=== PATIENT | male | born 1945 | race Caucasian/White ===

== ENCOUNTER → 2017-04-24 | Outpatient (CLI) | payer OTHER ==
[~2017-04-24] MED LIST: AUGMENTIN 875875 MG PO; DIAZEPAM10 M1 PO; NEURONTIN100 MG PO; OXYCODONE HCL10 M1 PO; PRILOSEC40 M1 PO; ULTRAM50 MG PO; VICODIN 500 MG-1 TAB PO; VICODIN HP 6601 TA1 PO; XARELTO15 M1 PO
[2017-04-24 14:02] LABS: CREATININE 1.02 mg/dL (0.70-1.30)
== END | disposition home or self-care (01) ==
LOC: CT 04-16 13:00 → LAB 13:33 → CT 14:00
PROVIDERS: Family Medicine
DX: I71.9 Aortic aneurysm of unspecified site, without rupture (principal)

== ENCOUNTER → 2022-07-23 | Outpatient (CLI) | payer OTHER | END | disposition home or self-care (01) | LOC: WOUNDCARE 00:23 | PROVIDERS: ATTEND Nurse Practitioner Family | DX: M27.2 Inflammatory conditions of jaws (principal); L59.8 Other specified disorders of the skin and subcutaneous tissue related to radiation; F12.90 Cannabis use, unspecified, uncomplicated; Z85.810 Personal history of malignant neoplasm of tongue; Z71.89 Other specified counseling; Y84.2 Radiological procedure and radiotherapy as the cause of abnormal reaction of the patient, or of later complication, without mention of misadventure at the time of the procedure ==

== ENCOUNTER 2025-02-06 18:32 | Emergency (ER) | payer MEDICARE ==
[~2025-02-06] VITALS: Ht 177.8 cm; Wt 68.0 kg
[2025-02-06 18:58] VITALS: BP 186/97
[2025-02-06] MEDS ORDERED: SODIUM CHLORIDE 0.9% 1,000 ML IV ONE (19:15)
[2025-02-06] MEDS ORDERED: Metoclopramide Hydrochloride 10 MG/2 ML VIAL IV ONE (19:15)
[2025-02-06 19:33] LABS: BASO # 0.0 10*3/uL (0.0-0.1); BASO % 0.3 % (0.0-1.0); EOS # 0.1 10*3/uL (0.0-0.4); EOS % 0.9 % (1.0-4.0); MEAN CELL VOLUME 90.5 fl (80.0-94.0); MEAN CORPUSCULAR HGB 28.6 pg (27.0-31.0); MEAN PLATELET VOLUME 8.3 fl (9.6-12.3); MONO # 0.8 10*3/uL (0.1-1.0); MONO % 7.1 % (3.0-9.0); NEUT # 9.9 10*3/uL (2.3-7.9); NEUT % 86.9 % (47.0-73.0); NUCLEATED RED BLOOD CELL 0.0 % (0.0-0.0); NUCLEATED RED BLOOD CELL 0.0 10*3/uL (0.0-0.0); PLATELET COUNT AUTOMATED 231 10*3/uL (130-400); RED CELL DISTRI WIDTH 13.8 % (0-14.5)
[2025-02-06 19:56] LABS: BUN 35.0 mg/dl (9-23); SGPT/ALT 8.0 U/L (5-49)
[2025-02-06 20:40] LABS: BILIRUBIN Negative (Negative); BLOOD Negative (Negative); CLARITY Clear (Clear); COLOR Yellow (Yellow); KETONE Trace (Negative); LEUKO ESTERASE Negative (Negative); NITRITE Negative (Negative); PH 5.5 (4.5-8.0); SPECIFIC GRAVITY 1.015 (1.001-1.030); UROBILINOGEN 0.2 E.U./dl (0.0-1.0)
[2025-02-06 20:47] LABS: EPITHELIAL CELLS 0-2; MUCOUS TRACE; WBC 0-2 wbc/hpf (0-5)
== END 2025-02-06 21:09 | disposition home or self-care (01) ==
LOC: ED 18:32
DX: E86.0 Dehydration (principal); J06.9 Acute upper respiratory infection, unspecified; R53.1 Weakness; R63.0 Anorexia; I10 Essential (primary) hypertension; Z88.8 Allergy status to other drugs, medicaments and biological substances